=== PATIENT | male | born 1955 | race Caucasian/White ===

== ENCOUNTER 2018-07-30 13:03 | Inpatient (IN) ==
[2018-07-30] MEDS ORDERED: LOVENOX 1 MG/KG SUBQ ONE (13:43)
[2018-07-30] MEDS ORDERED: CARDIZEM IV ONE (13:43)
[2018-07-30] MEDS ORDERED: LOVENOX SUBQ ONE (14:00)
--- NOTE | 2018-07-30 14:13 | Diag Imaging Result Doc PS360 ---
EXAM: CHEST-1 VIEW HISTORY: palpitat TECHNIQUE: Chest single view COMPARISON: 07/09/2013 FINDINGS: The lungs are hyperexpanded. The heart is not enlarged. The vessels are not distended. There are no infiltrates. No effusion identified. Right base granuloma. IMPRESSION: No acute abnormality. Electronically signed by Rey Garcia 07/30/2018 2:10 PM
[2018-07-30 14:27] LABS: BASO# 0.01 X1000 (0.0-0.2); BASO% 0.2 % (0.0-0.8); EOS# 0.03 X1000 (0.0-0.7); EOS% 0.5 % (0.0-10.0); HEMATOCRIT 45.4 % (42.0-52.0); HEMOGLOBIN 15.7 g/dL (14.0-18.0); LYMPH# 3.03 X1000 (1.2-3.4); LYMPH% 46.3 % (20.5-51.1); MCH 34.4 PG (27-31); MCHC 34.6 g/dL (33-37); MCV 99.6 FL (81-99); MONO# 0.48 X1000 (0.11-0.59); MONO% 7.3 % (1.7-9.3); MPV 10.1 FL (7.4-10.4); NEUT# 2.99 X1000 (1.4-6.5); NEUT% 45.7 % (42.2-75.2); PLT 165 X1000 (130-400); RBC 4.56 XMIL (4.7-6.1); RDW 13.6 % (11.5-14.5); WBC 6.54 X1000 (4.8-10.8)
[2018-07-30 14:50] LABS: AGAP 14; ALB/GLOB RATIO 1.3; ALBUMIN 3.9 g/dL (3.5-5.0); ALKALINE PHOSPHATASE 53 U/L (32-122); BUN 14 mg/dL (8-22); CALCIUM 9.2 mg/dL (8.8-10.2); CHLORIDE 100 mmol/L (98-107); CK PROFILE 79 U/L (24-204); COSMO 274; CREATININE 0.8 mg/dL (0.7-1.2); ESTIMATED GFR > 60; GLUCOSE 97 mg/dL (70-104); GOT 15 U/L (10-34); GPT 20 U/L (10-44); MAGNESIUM 1.7 mg/dL (1.5-2.7); POTASSIUM 4.5 mmol/L (3.5-5.1); SODIUM 137 mmol/L (136-145); TCO2 23 mmol/L (25-35); TOTAL BILIRUBIN 0.73 mg/dL (0.20-1.00); TOTAL PROTEIN 6.8 g/dL (6.3-8.3)
--- NOTE | 2018-07-30 14:57 | PROVIDER DOCUMENTATION ---
This chart was entered by Janel Barnes Scribe, acting as scribe for Nathaniel Benton MD. HPI-Cardiac General - General Chief Complaint: Palpitations Stated Complaint: DX W AFIB 2 WEEKS AGO/SYMPTOMS PRESENT NOW Time Seen by Provider: 07/30/18 13:16 Source: patient Allergies/Adverse Reactions: Patient Allergies Allergy/AdvReac Type Severity Reaction Status Date / Time No Known Allergies Allergy Verified 07/30/18 13:32 Home Medications: Home Medication List Medication Instructions Recorded Confirmed Last Taken Type Carvedilol 3.125 mg PO BID 07/09/13 07/30/18 07/30/18 History Alprazolam 1 tab PO TID 07/30/18 07/30/18 07/30/18 History Trazodone HCl 1 tab PO QHS 07/30/18 07/30/18 07/29/18 History - History of Present Illness-Cardiac Nature of Presenting Problem: Patient is a 63 year old male who presents with palpitations. Patient states having chest pain that radiates to left am and shortness of breath with palpitations. Report he was diagnosed with A fib 3 weeks ago. Denies nausea. Location: reports: central Quality of Pain: reports: tightness Severity in ED: mild Onset/Duration: gradual Timing: still present, getting worse Context/Activities at Onset: reports: light activity Palpitation Quality: fast/pounding heart beat History of arrythmia: reports: A-Fib Associated Symptoms: reports: shortness of breath Similar Symptoms Previously?: Yes Recently Seen Here or By Another Healthcare Provider: Yes Review of Systems - Adult - REVIEW OF SYSTEMS - ADULT Constitutional: reports: no symptoms reported. denies: chills, fever, fatique Eyes: reports: no symptoms reported Ears, Nose, Mouth & Throat: reports: no symptoms reported Cardiovascular: reports: see HPI, chest pain, palpitations. denies: heart murmur Respiratory: reports: see HPI, shortness of breath. denies: cough, wheezing Gastrointestinal: reports: no symptoms reported Genitourinary: reports: no symptoms reported Musculoskeletal: reports: no symptoms reported Integumentary: reports: no symptoms reported Neurological: reports: no symptoms reported Psychiatric: reports: no symptoms reported Endocrine: reports: no symptoms reported Hematologic/Lymphatic: reports: no symptoms reported Allergic/Immunologic: reports: no symptoms reported All Other Systems: Reviewed and Negative Past History - Adult - PAST MEDICAL HISTORY-ADULT Review of Records: reports: Old Records Reviewed, Nursing Assessment Review, Medications Reviewed, Social history reviewed & non-contributory. Major Childhood Illnesses: reports: denies history Cardiovascular: reports: A-Fib, HTN Respiratory: reports: denies history Gastrointestinal: reports: denies history Obstetrical/Gynecological: reports: denies history Genitourinary: reports: denies history Musculoskeletal: reports: denies history Neurological: reports: denies history Psychiatric: reports: anxiety Endocrine/Immune: reports: denies history Other Conditions: reports: denies history - PRIOR SURGERIES/PROCEDURES Surgical/Procedure History: reports: reviewed, not pertinent - IMMUNIZATION STATUS Childhood Immunizations: See Nurse Assessment Flu Vaccine: See Nurse Assessment - FAMILY HISTORY Family History: reviewed, not pertinent - SOCIAL HISTORY Smoking: cigarettes, less than 1 pack/day Provider spent 3-5 mins advising pt. on dangers of tobacco.: Discussed manners to quit use, and f/u contacts for add'l counseling. Substance Use: alcohol Alcohol Use Frequency: occasionally Physical Exam-General - PHYSICAL EXAM-ADULT Initial Vital Signs Reviewed: Yes - CONSTITUTIONAL General Appearance: alert, no apparent distress. negative: lethargic, slow to respond - EYES Eyes: PERRL/EOMI. negative: scleral icterus, sunken eyes - HEAD, EARS, NOSE, MOUTH & THROAT HENMT: normocephalic/atraumatic, moist mucous membranes. negative: angioedema, hearing deficit - RESPIRATORY Respiratory: chest non-tender, lungs clear, normal breath sounds. negative: crackles, rhonchi, wheezing - CARDIOVASCULAR Cardiovascular: normal peripheral pulses, tachycardia, irregularly irregular. negative: systolic murmur - GASTROINTESTINAL (ABDOMEN) Abdominal Exam: normal bowel sounds, non tender, soft. negative: guarding, rebound - MUSCULOSKELETAL Extremity: non-tender, normal inspection. negative: deformity, erythema - SKIN Integumentary: normal color, normal turgor, warm/dry. negative: cyanosis, ecchymosis, erythema, jaundice - NEUROLOGIC Neurologic: grossly normal. negative: aphasia, facial droop - PSYCHIATRIC Psych/Mental Status: normal mood/affect, oriented x 3. negative: anxious - HEART Score HEART Score: History: Slightly Suspicious HEART Score: ECG: Non-Specific Repolarization Disturbance/LBBB/PM HEART Score: Age: 45-65 Years HEART Score: Risk Factors for Atherosclerotic Disease: 1 or 2 Risk Factors HEART Score: Troponin: < or = Normal Limit Total HEART Score:: 3 Progress - PLAN OF CARE/RESULTS Progress/Plan/Lab Results: Vital Signs - 8 hr 07/30/18 13:07 07/30/18 13:58 07/30/18 13:59 Temperature 99.2 F Pulse Rate 145 H 83 76 Respiratory Rate 22 23 21 Blood Pressure 136/93 137/85 O2 Sat by Pulse Oximetry 96 93 L 94 L 07/30/18 14:00 07/30/18 14:10 Temperature Pulse Rate 91 H 83 Respiratory Rate 22 20 Blood Pressure O2 Sat by Pulse Oximetry 94 L 97 Laboratory Results - last 24 hr 07/30/18 07/30/18 07/30/18 13:41 13:41 13:41 WBC 6.54 RBC 4.56 L Hgb 15.7 Hct 45.4 MCV 99.6 H MCH 34.4 H MCHC 34.6 RDW Std Deviation 13.6 Plt Count 165 MPV 10.1 Neut % (Auto) 45.7 Lymph % (Auto) 46.3 [place] % (Auto) 7.3 Eos % (Auto) 0.5 Baso % (Auto) 0.2 Neut # (Auto) 2.99 Lymph # (Auto) 3.03 [place] # (Auto) 0.48 Eos # (Auto) 0.03 Baso # (Auto) 0.01 Sodium 137 Potassium 4.5 Chloride 100 Carbon Dioxide 23 L Anion Gap 14 BUN 14 Creatinine 0.8 Estimated GFR/1.73 m2 > 60 BUN/Creatinine Ratio 18 Glucose 97 Calculated Osmolality 274 Calcium 9.2 Magnesium 1.7 Total Bilirubin 0.73 AST 15 ALT 20 Alkaline Phosphatase 53 Creatine Kinase 79 Troponin T < 0.010 Total Protein 6.8 Albumin 3.9 Globulin 2.9 Albumin/Globulin Ratio 1.3 Orders Category Date Time Status Cardiac Monitoring DIRECTED Care 07/30/18 13:56 Active CHEST-1 VIEW [RAD] Stat Exams 07/30/18 13:56 Completed CBC WITH DIFF [HEME] Stat Lab 07/30/18 13:41 Completed CK PROFILE [SP CHEM] Stat Lab 07/30/18 13:41 Completed COMPREHENSIVE METABOLIC PANEL [CHEM] Stat Lab 07/30/18 13:41 Completed MAGNESIUM [CHEM] Stat Lab 07/30/18 13:41 Completed TROPONIN T Stat Lab 07/30/18 13:41 Completed TSH Stat Lab 07/30/18 13:41 Received 0.9% Sodium Chloride Inj [Ns] 100 ml Med 07/30/18 14:15 Active Diltiazem [Cardizem] 125 mg IV As Directed mls/hr Diltiazem [Cardizem] Med 07/30/18 13:43 Discontinued 20 mg IV NOW ONE Enoxaparin 1 mg/kg [Lovenox 1 mg/kg] Med 07/30/18 13:43 Discontinued 1 each SUBQ NOW ONE Enoxaparin [Lovenox] Med 07/30/18 14:00 Discontinued 60 mg SUBQ NOW ONE Result Diagrams: 07/30/18 13:41 07/30/18 13:41 - REASSESSMENT Reassessment #1 Time Reassessed: 14:12 (a fib, rate of 85-100, feels better) Status: improving - EKG 1 Time of EKG reading by physician:: 13:08 EKG Read and Signed by:: Nathaniel Benton EKG Interpretation (*Must complete 3 of following elements*): Abnormal Rate: 155 Rhythm: atrial fibrillation with rapid ventricular response [place]: normal MS Interval: normal Comments: cannot rule out anteroseptal infarct, age undetermined - XRAY 1 XRAY Study: Chest Impression: See EMR Report (EXAM: CHEST-1 VIEW HISTORY: palpitat TECHNIQUE: Chest single view COMPARISON: 07/09/2013 FINDINGS: The lungs are hyperexpa nded. The heart is not enlarged. The vessels are not distended. There are no infiltrates. No effusion identified. Right base granuloma. IMPRESSION: No acute abnormality. Electronically signed by Rey Garcia 07/30/2018 2:10 PM 07/30/18 1410 Interpreting Physician: Rey Garcia MD Dictated Date/Time: 07/30/18 1410 cc: Nathaniel Benton MD; Everardo Rodríguez MD) - CONSULTS/PCP/HOSPITALIST Notification #1 *Consult/PCP/Hospitalist*: Summer, with hospitalist, Dr Florez Time Discussed: 14:52 Departure - Departure Date of Disposition Decision: 07/30/18 Time of Disposition Decision: 13:45 DIAGNOSIS: Atrial fibrillation with RVR Disposition: ADMITTED INPATIENT 09 Certified Medical Emergency: Emergent Condition: Good Referrals and Follow-Ups: Everardo Rodríguez MD [Primary Care Provider] - - Critical Care Note This patient required my direct & personal management of CC.: No Attestation - Physician/ LYDIA Attestation The physician spent face to face time with patient:: Yes Advanced Practice Provider documentation review:: Supervising physician onsite and consulted in the evaluation and care of this patient. The physician did have a face to face encounter with the patient. This chart was documented by the indicated scribe, (Janel Barnes Scribe) and accurately reflects the services I performed and decisions made by me, Nathaniel Benton MD, as attested by the provider's signature.
[2018-07-30] MEDS: CARDIZEM 125 MG in NS 100 ML IV SCH (15:02)
--- NOTE | 2018-07-30 15:15 | EKG Report ---
Test Performed on : 07/30/2018 1:08:56 PM Test Reason : ED. No order in [place] Blood Pressure : / mmHG Vent. Rate : 155 BPM Atrial Rate : 129 BPM P-R Int : 000 ms QRS Dur : 074 ms QT Int : 288 ms P-R-T Axes : 000 069 080 degrees QTc Int : 462 ms Atrial fibrillation. with rapid ventricular response. Cannot rule out Anteroseptal infarct , age undetermined Abnormal ECG When compared with ECG of 27-AUG-2013 15:11, Atrial fibrillation. has replaced Sinus rhythm. Vent. rate has increased BY 74 BPM Minimal criteria for Anteroseptal infarct are now present Unconfirmed Result
[2018-07-30] MEDS ORDERED: TYLENOL PO PRN (16:59)
[2018-07-30] MEDS ORDERED: NICODERM PATCH TD ONE (16:59)
[2018-07-30] MEDS ORDERED: ZOFRAN IV PRN (16:59)
[2018-07-30] MEDS: XANAX PO SCH (18:30)
[2018-07-30] MEDS: DESYREL PO SCH (20:41)
[2018-07-30] MEDS ORDERED: COREG PO SCH (21:00)
[2018-07-31] MEDS ORDERED: LOVENOX SUBQ SCH ×2 (03:00→05:45)
[2018-07-31] MEDS: CARDIZEM 125 MG in NS 100 ML IV SCH (04:28)
[2018-07-31 05:13] LABS: BASO# 0.03 X1000 (0.0-0.2); BASO% 0.5 % (0.0-0.8); EOS# 0.11 X1000 (0.0-0.7); EOS% 1.7 % (0.0-10.0); HEMATOCRIT 42.9 % (42.0-52.0); LYMPH# 2.95 X1000 (1.2-3.4); LYMPH% 46.5 % (20.5-51.1); MCH 34.5 PG (27-31); MCV 98.6 FL (81-99); MONO# 0.63 X1000 (0.11-0.59); MONO% 9.9 % (1.7-9.3); MPV 10.2 FL (7.4-10.4); NEUT# 2.63 X1000 (1.4-6.5); NEUT% 41.4 % (42.2-75.2); PLT 157 X1000 (130-400); RBC 4.35 XMIL (4.7-6.1); RDW 13.8 % (11.5-14.5); WBC 6.35 X1000 (4.8-10.8)
[2018-07-31 05:35] LABS: AGAP 7; BUN 14 mg/dL (8-22); CALCIUM 8.8 mg/dL (8.8-10.2); CHLORIDE 103 mmol/L (98-107); COSMO 277; CREATININE 0.9 mg/dL (0.7-1.2); ESTIMATED GFR > 60; GLUCOSE 81 mg/dL (70-104); POTASSIUM 4.1 mmol/L (3.5-5.1); SODIUM 139 mmol/L (136-145); TCO2 29 mmol/L (25-35)
[2018-07-31] MEDS: XANAX PO SCH ×3 (08:21→16:58)
[2018-07-31] MEDS: BETAPACE PO SCH ×2 (08:22→20:33)
[2018-07-31] MEDS ORDERED: ELIQUIS PO SCH (09:00)
--- NOTE | 2018-07-31 10:20 | HISTORY AND PHYSICAL ---
Addendum to History and Physical dictated by nurse practitioner. I agree with most components of the History and Physical, Assessment and Plan. In brief, Mr. Dueñas is a 63-year-old male with a past history of active tobacco abuse, atrial fibrillation, rapid ventricular rate requiring cardioversion twice and eventually ablation at [facility] in 2014, essential hypertension, anxiety and insomnia who came in with chief complaints of chest pain and shortness of breath since morning. Apparently, the patient had seen his regular physician a couple of weeks ago where he was found to be in atrial fibrillation, however, supposedly his rate was controlled so he was not started on any medication. He was put on aspirin and was advised to see cardiology as an outpatient. In the emergency room, he was found to have heart rate of 140 with irregular irregular rhythm. His troponin was negative. He was given a dose of intravenous diltiazem. He was started on diltiazem drip and enoxaparin subcutaneously therapeutic dose and hospitalist team was consulted for further management. At the time of my evaluation, he denies any more chest pain. He is not feeling short of breath. I did discuss about exam findings, and I answered all of his questions. PHYSICAL EXAMINATION: VITAL SIGNS: Currently, temperature of 99.2, pulse 83. On bedside monitor, it is 92 with irregularly irregular rhythm, blood pressure 130/85 saturating 97% on room air. GENERAL: He does not appear in any acute distress. HEENT: Oral cavity is moist. LUNGS: He has decreased breath sounds bilaterally. No wheezing, rhonchi or crackles. HEART: S1 and S2 normal. No murmur, rub or gallop. He has irregularly irregular heart rhythm. ABDOMEN: Soft and nontender. EXTREMITIES: No lower extremity edema. LABORATORY: Labs are suggestive of normal hemoglobin, normal platelet count. Normal electrolytes. The first troponin has been negative. MICROBIOLOGY: No data. IMAGING: Chest x-ray did not have an acute cardiopulmonary process. EKG had atrial fibrillation with rapid ventricular rate. ASSESSMENT AND PLAN: 1. Atrial fibrillation with rapid ventricular rate. 2. Essential hypertension. 3. Anxiety and insomnia. 4. Active tobacco abuse. PLAN: Continue patient on intravenous diltiazem and therapeutic dose of enoxaparin. Follow up with echocardiogram. I appreciate Cardiology's recommendation about further management including changing his IV medications to p.o. until the echocardiogram is back. I will resume his antihypertensive and anxiety medications which he takes at home. Plan of care discussed with him. All of his questions have been answered. cc: Aristeo Florez MD MTDKami
--- NOTE | 2018-07-31 10:25 | Diag Imaging Result Doc PS360 ---
EXAM: CT THORAX W/O CONTRAST INDICATION: emphysema TECHNIQUE: This exam was performed using automated exposure control, adjustment of mA or kV according to patient size, and/or use of iterative reconstruction technique. COMPARISON: None. FINDINGS: There is overall mild pulmonary emphysema with an apical predominance. However, there is a fairly large left at the medial aspect of the left lung base. There is mild bibasilar subsegmental atelectasis. There are a few calcified granulomata in the right lung. The lungs are essentially clear, otherwise. There is no pleural fluid collection and no pneumothorax. There are calcified mediastinal and right hilar lymph nodes indicating prior granulomatous disease. No significant lymphadenopathy is appreciated, otherwise. There is no cardiomegaly. The bony structures of the thorax are grossly intact. Limited views of the upper abdomen are grossly unremarkable. IMPRESSION: 1.Overall mild pulmonary emphysema. 2.Mild bibasilar subsegmental atelectasis. 3.Other incidental/nonacute findings detailed above. No definite acute pathology by CT. Electronically signed by Lorenzo Concepcion 07/31/2018 10:22 AM
--- NOTE | 2018-07-31 10:38 | HISTORY AND PHYSICAL ---
PRIMARY CARE PHYSICIAN: Everardo Rodríguez MD CHIEF COMPLAINT: Chest pain and shortness of breath. HISTORY OF PRESENT ILLNESS: Mr. Dueñas is a 63-year-old male who presents to the ER today complaining of chest pain and shortness of breath. He states that 2 weeks ago he went to see his Primary Care Physician Dr. Rodríguez. Dr. Rodríguez stated that he was back in atrial fibrillation, but it was a controlled rate. Mr. Dueñas has a history of atrial fibrillation where he was treated 4-5 years ago at [facility] with an ablation. Dr. Rodríguez scheduled him an appointment to see Dr. Mata for this past . Mr. Dueñas had to change that appointment with Dr. Mata and was not to see Dr. Mata until 08/12. Mr. Dueñas did not have any symptoms with this atrial fibrillation. He denied any shortness of breath or chest pain at that time. He does state that however this morning he woke up and did start having some chest pain and some shortness of breath, and decided to come to the ER. When he presented to the ER, he was noted to be in atrial fibrillation with a rate of 155. The patient was given Cardizem 20 mg IV push. The patient was then started on a Cardizem drip. The patient denies any chest pain or shortness of breath at this time. The patient is lying on the ER stretcher at this time in no acute distress. Heart rate at this time is in the 80's in atrial fibrillation. Blood pressure is stable at this time. There are no other symptoms noted at this time. The patient states that he did not have any diaphoresis with his chest pain. No headache. No nausea or vomiting with his chest pain. PAST MEDICAL HISTORY: Hypertension, atrial fibrillation/flutter with cardioversion times 2, and a subsequent ablation at [facility] 4-5 years ago. Anxiety. insomnia. PAST SURGICAL HISTORY: Ablation 4 to 5 years ago at [facility]. Right foot surgery from a fracture. FAMILY HISTORY: Dad from prostate cancer. Mom from dementia and heart related problems. Brother from heart problems. SOCIAL HISTORY: The patient lives here in [place]. He smokes 1-1/2 packs of cigarettes a day. Drinks 3 beers on Sunday and 3 beers on Sunday night. Denies any illicit drug abuse. MEDICATIONS: 1. Xanax 0.5 mg p.o. t.i.d. 2. Trazodone 50 mg p.o. at bedtime. 3. Carvedilol 3.125 mg p.o. b.i.d. 4. Aspirin 81 mg p.o. in the morning. ALLERGIES: No known drug allergies. LABORATORY AND DIAGNOSTIC: White blood cell count 6.54, hemoglobin 15.7, hematocrit 45.5, and platelet count 165,000. Sodium 137, potassium 4.5, carbon dioxide 23, BUN 14, creatinine 0.8. GFR is greater than 60. Glucose is 97. Calcium 9.2. Magnesium 1.7. AST 15 and ALT 20. Alkaline phosphatase is 53. Creatinine kinase is 79. Troponin is less than 0.01. TSH is 0.94. Chest x-ray shows no acute abnormality. EKG in the ER shows a rate of 155. Atrial fibrillation with rapid AVR. REVIEW OF SYSTEMS: A 12 point Review of Systems was obtained and all is negative except for as stated above in HPI. PHYSICAL EXAMINATION: VITAL SIGNS: Temperature 99.2, heart rate 83, respiratory rate 20, blood pressure 137/85, 02 sats 97% on room air. GENERAL: This is a well-nourished, well-developed, 63-year-old male in no acute distress. HEENT: Normocephalic and atraumatic. Pupils are equal, round and reactive to light. Mucous membranes are dry. No dentition noted. NECK: Supple. No lymphadenopathy. Trachea is midline. No JVD. CV: No murmur, gallop or rub. The patient has atrial fibrillation on the monitor. Rate of 83. RESPIRATORY: Lung sounds are clear. Equal chest excursion. Respirations are nonlabored. No accessory muscle usage. GI: Abdomen is soft, nontender and nondistended. Bowel sounds are present times 4. NEUROLOGIC: The patient is awake, alert and oriented. Follows all commands. Cranial nerves are intact. MUSCULOSKELETAL: Full distal strength noted. No abnormalities or deformities. EXTREMITIES: No cyanosis, clubbing or edema. DP and PT pulses are present and intact. SKIN: Warm, dry and intact. No rashes or bruises noted. ASSESSMENT: 1. Atrial fibrillation. 2. Hypertension. 3. Anxiety. 4. Tobacco dependence. 5. Insomnia. PLAN: We will admit this patient place him on the CIC Unit and continue him on Cardizem drip. We will do echocardiogram in the morning. We will do serial CK's and troponin's, and EKG's. Restart home medications. Repeat labs in the morning. Consult Cardiology. Dictated by JOSE CRUZ Le for Aristeo Florez MD cc: MD Aristeo Gee MD I agree with most components of history, physical, assessment and plan. A separate addendum has been dictated. ANGELICA
[2018-07-31] MEDS ORDERED: NICODERM PATCH TD PRN (14:17)
--- NOTE | 2018-07-31 14:30 | PROGRESS NOTE ---
DATE: 07/31/2018 INTERVAL HISTORY: His heart rate was in acceptable range on diltiazem drip. He is still in atrial fibrillation. We discussed about exam findings. Cardiology recommendation was starting sotalol. I answered all of his questions. SUBJECTIVE: He is denying any chest pain, shortness of breath, any more palpitation. No nausea or vomiting. VITALS: Temperature 98 degrees, pulse 66, respiratory rate 16, blood pressure 110/77, saturating 95% room air. PHYSICAL EXAMINATION: General: Does not appear in any acute distress. Oral cavity is moist. Lungs: Air entry bilaterally equal. No wheeze, rhonchi, or crackles. Cardiovascular: S1, S2 normal. No murmur, rub, or gallop. Appears irregularly irregular. Abdomen: Soft, nontender. Extremities: No lower extremity edema. LABS: Suggestive of normal hemoglobin, hematocrit, and platelet count. Normal electrolytes. His troponins were negative x3. ASSESSMENT AND PLAN: 1. Atrial fibrillation with rapid ventricular rate. Continue intravenous diltiazem and start sotalol as per Cardiology recommendation. He is on apixaban and the plan is to take him for cardioversion tomorrow if he does not cardiovert on sotalol. 2. History of anxiety and insomnia. Continue home alprazolam and trazodone. 3. Active tobacco abuse. CT scan thorax has been ordered by cardiology. Follow up results. DISPOSITION: The patient remains inside the hospital as we await his chemical or electrical cardioversion. Plan of care discussed with him. All of his questions been answered. cc: Aristeo Florez MD
[2018-07-31] MEDS: ELIQUIS PO SCH ×3 (16:58→20:33)
[2018-07-31] MEDS: DESYREL PO SCH (20:33)
--- NOTE | 2018-07-31 22:49 | ECHO REPORT ---
ORDER DATE: 07/30/2018 MEASUREMENTS: Septal thickness 1.0, left ventricular internal diameter in diastole 5.0, left ventricular posterior wall thickness 0.9. Left ventricular internal diameter in systole 3.6, aortic root 3.5, left atrium 3.3. SUMMARY: 1. Adequate quality study. 2. The aortic valve is trileaflet and opens normally on 2-dimensional images. Peak gradient across the aortic valve is less than 5 mmHg. Mitral, tricuspid and pulmonic valves are without evidence of structural abnormality, with mild to moderate mitral regurgitation and trace tricuspid regurgitation. The estimated systolic PA pressure by Doppler is 30 mmHg. The aortic root is normal size. 3. Normal left ventricular dimensions demonstrated. Estimated left ventricular ejection fraction appears to be approximately 50% to 55%. No regional wall motion abnormalities are evident. Left atrium, right atrium and right ventricle are normal in size, with normal right ventricular systolic function. 4. No pericardial effusion. 5. Appearance of inferior vena cava suggests normal central venous pressure. cc: MD Fabiola Jimenez CRNP
[2018-08-01 05:50] LABS: INR 1.13; PROTIME 15.4 Seconds (11.0-16.0)
[2018-08-01 05:51] LABS: PTT 27.5 Seconds (22.3-41.8)
[2018-08-01] MEDS: ELIQUIS PO SCH ×2 (08:34→20:47)
[2018-08-01] MEDS: BETAPACE PO SCH ×2 (08:34→20:47)
[2018-08-01] MEDS: XANAX PO SCH ×3 (10:55→17:00)
--- NOTE | 2018-08-01 11:05 | EKG Report ---
Test Performed on : 08/01/2018 10:44:10 AM Test Reason : afib Blood Pressure : / mmHG Vent. Rate : 074 BPM Atrial Rate : 087 BPM P-R Int : 000 ms QRS Dur : 090 ms QT Int : 398 ms P-R-T Axes : 000 010 066 degrees QTc Int : 441 ms Atrial fibrillation. Abnormal ECG When compared with ECG of 30-JUL-2018 13:08, (Unconfirmed) Vent. rate has decreased BY 81 BPM Minimal criteria for Anteroseptal infarct are no longer present Confirmed by Agnieszka CRANDALL, Wenceslao Alexander ([id number]) on 08/01/2018 1:42:22 PM
[2018-08-01] MEDS ORDERED: DIPRIVAN 1% ONE (11:21)
--- NOTE | 2018-08-01 12:36 | PROGRESS NOTE ---
DATE: 08/01/2018 SUBJECTIVE: I saw Mr. Dueñas this morning in his hospital bed. He refers to be doing okay. No new complaints. No shortness of breath and no chest pain. He is awaiting for AUGIE with cardioversion. OBJECTIVE: Blood pressure 121/86, pulse of 83, respirations 17, and temperature is 98.5 degrees. The patient is saturating 95% on room air. General: Mr. Dueñas is a 63-year-old gentleman. He is in bed in no distress. HEENT: Mucosa is pink and moist. He looks mildly undernourished. Chest: Air entry is bilaterally reduced. There is some expiratory distant wheezing, but no crackles. Cardiovascular: Irregularly irregular rate controlled. No murmurs. Abdomen: Soft and nontender. Bowel sounds present. Extremities: No pedal edema. ARTS EDUCATION TEACHER: Patient is awake, alert, and oriented. There are no focal neurological deficit. LABORATORY DATA: None for today. CURRENT MEDICATIONS: All have been reviewed. The patient continues to be on Cardizem drip, Betapace, and Eliquis. IMAGING STUDIES: The patient's previous imaging studies have all been reviewed. A CT scan of the chest shows an overall mild pulmonary emphysema, and mild bibasilar segmental atelectasis. Echocardiogram shows an ejection fraction of about 50 to 55 percent. ASSESSMENT: 1. Atrial fibrillation with RVR on presentation. The patient is pending AUGIE with cardioversion today. 2. History of anxiety and insomnia. 3. Tobacco abuse. 4. COPD/emphysema. The patient is currently not in acute exacerbation. We will use p.r.n. nebulization for the mild bronchospasms. cc: Michael Velasquez MD
--- NOTE | 2018-08-01 14:53 | EKG Report ---
Test Performed on : 08/01/2018 2:45:05 PM Test Reason : TEEW/CARDIOVERSION Blood Pressure : / mmHG Vent. Rate : 069 BPM Atrial Rate : 069 BPM P-R Int : 156 ms QRS Dur : 090 ms QT Int : 418 ms P-R-T Axes : 078 008 068 degrees QTc Int : 447 ms Normal sinus rhythm. Possible Left atrial enlargement Borderline ECG When compared with ECG of 01-AUG-2018 10:44, Sinus rhythm. has replaced Atrial fibrillation. Confirmed by Agnieszka CRANDALL, Wenceslao Alexander ([id number]) on 08/05/2018 5:04:55 PM
--- NOTE | 2018-08-01 19:01 | CARDIAC CATH REPORT ---
PROCEDURE NAME: - PROCEDURE: Cardioversion. INDICATION: Atrial fibrillation. PROCEDURE IN DETAIL: Mr. Dueñas was brought to the catheterization laboratory in fasting state. Prepped in usual fashion. After AUGIE was performed and confirmed no clot, he was ensured to be adequately sedated. One shock was delivered in synchronized fashion at 150 joules with conversion to sinus rhythm. The patient tolerated the procedure well without any complications. cc: Abimael Mata MD
[2018-08-01] MEDS: DESYREL PO SCH (20:47)
--- NOTE | 2018-08-01 21:29 | Transesophageal Echocardiogram ---
DATE: 08/01/2018 INDICATION FOR THE PROCEDURE: Atrial fibrillation. PROCEDURE IN DETAIL: Mr. Dueñas was brought to the catheterization laboratory in fasting state. Informed consent was obtained. Prepped in usual fashion. He was anesthetized with HurriCaine spray, as well as propofol. After adequate sedation, AUGIE probe was passed without difficulty. Images were obtained in multiple planes. At conclusion of procedure, the probe was removed. No apparent complications. FINDINGS: 1. The right atrium appears mildly enlarged. There is no clear evidence of shunting across the interatrial septum or [id number] shunting visualized via injection of agitated saline contrast. Color Doppler does show a suggestion of a very mild shunt suggestive of an extremely small PFO. 2. Trace tricuspid regurgitation. 3. Right ventricle does appear to have somewhat mild reduction in RV systolic function. 4. No significant pulmonic insufficiency on poor views of the pulmonic valve. 5. Left atrium appears mildly enlarged. The pulse wave velocity in the left atrial appendage is less than 40 cm/sec indicating a low-flow state. There is no clear evidence of organized clot. 6. No mitral prolapse. Mild mitral regurgitation. 7. Normal LV size. The left ventricular systolic function was difficult to estimate due to irregularity. It appears mildly reduced on the order of 45%. 8. The aortic valve appears to open well. It is trileaflet. No evidence of stenosis or insufficiency. 9. There is mild atherosclerosis identified in the descending thoracic aorta. 10. There is no pericardial effusion identified. cc: MD Everton Grullon MD
[2018-08-02] MEDS: BETAPACE PO SCH (08:17)
[2018-08-02] MEDS: XANAX PO SCH (08:17)
[2018-08-02] MEDS: ELIQUIS PO SCH (08:17)
[2018-08-02 11:43] VITALS: BP 125/80
--- NOTE | 2018-08-02 14:09 | CARDIOLOGY CONSULTATION ---
DATE: 07/31/2018 CONSULTATION REQUESTED BY: Hospitalist service. PRIMARY CARE PHYSICIAN: Dr. Rodríguez. EXTRACTIONS TECHNOLOGIST: Dr. Abimael Mata. REASON FOR CONSULTATION: Persistent atrial fibrillation. HISTORY: The patient is 63 years of age. He presented to Dr. Rodríguez about 3 weeks ago for a regular checkup. At that time, he stated that for few days or weeks, he had noted slightly decreased stamina and some easy fatigability. At that time, Dr. Rodríguez listened to his heart and told him that he was having an irregular pulse or irregular heartbeat. The patient was aware of having atrial fibrillation in the past and then they made an appointment to see Dr. Mata. However, the appointment was somewhat late in the month and he did make it. Yesterday, he presented to the ER because for the past few days, he has been feeling definitely more short of breath and he has felt his heart racing. Upon presentation to the ER, he was noted to be in atrial fibrillation with rapid response. The first EKG shows atrial fibrillation with a heart rate of 155 beats per minute. He was placed on IV Cardizem and overnight he has felt better. Today, his pulse is more controlled. He denies having chest pain. He denies having swelling. Denies having syncope. PAST MEDICAL HISTORY: Positive for paroxysmal atrial fibrillation. Back in 2013, he presented to this hospital and at that time they found him in atrial fibrillation. They did cardioversion in August 2013. Subsequently he was referred to Dr. Webb in [place], who performed ablation of atrial fibrillation. Since then, the patient has really needed any more specific treatment for atrial fibrillation. He has felt fine. Past history is also positive for hypertension and some anxiety. PAST SURGICAL HISTORY: He had a broken foot on the right side requiring surgery. He has had some oral surgery in the past. SOCIAL HISTORY: He lives by himself with his son. His is sick after a severe stroke that left her paralyzed. She is staying at a half-way. The patient smokes half a pack of cigarettes a day for the past 40 years. He works doing [employer] for the past 43 years. 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 Not a drinker. FAMILY HISTORY: Mother had myocardial infarction; however, she did not from it. Family had heart attacks. ALLERGIES: His allergies are negative. HOME MEDICATIONS: 1. Alprazolam 1 tablet 3 times a day. 2. Carvedilol 3.125 twice a day. 3. Trazodone 1 tablet at bedtime. REVIEW OF SYSTEMS: Really noncontributory. Aside from what I have reported, the multiple systems review is negative. PHYSICAL EXAMINATION: Vital signs: Blood pressure 111/77, temperature 98.8 degrees, pulse 63, respirations 16. General: He is awake, alert, oriented, in no distress. HEENT: Unremarkable. Chest: Clear to auscultation and percussion. Heart: Sounds are irregularly irregular. Abdomen: Soft, nontender. Extremities: Show good pulses. No peripheral edema. Neurological: Nonfocal. Moves 4 extremities. BLOOD WORK: Sodium is 139, potassium 4.1, BUN 14, creatinine 0.9. His hemoglobin 15 g. Troponins have been checked 3 times, are negative. IMPRESSION: 1. Patient presenting with paroxysmal atrial fibrillation with rapid response. 2. History of hypertension. 3. Tobacco user. 4. Family history of myocardial infarction. RECOMMENDATIONS: 1. At this time, I would suggest to obtain a lipid panel. We will consider doing a CT scan of the chest because he does have a clear indication of emphysema on physical exam. I may want to know how bad this situation is prior to long-term therapy with beta blockers. He might require repeated ablation. 2. He has been counseled against smoking cigarettes. 3. We will also order an echocardiogram and if the CT of the chest shows coronary calcification, I may want to obtain a myocardial perfusion stress test. 4. We will initiate Sotalol 80 mg BID + Eliquis 5 mg BID. If he does not convert to sinus rhythm overnight, we will arrange for a transesophageal echo and a direct current cardioversion. Thank you again for the opportunity to participate in his evaluation. cc: Everton Calabrese MD [facility]
--- NOTE | 2018-08-02 14:39 | CARDIOLOGY PROGRESS NOTE ---
DATE: 08/01/2018 CHIEF COMPLAINT: Shortness of breath, irregular heartbeat. SUBJECTIVE: Mr. Dueñas feels fine this morning. He is still in atrial fibrillation. Rate is controlled. Yesterday, we did a CT of the chest that shows overall mild pulmonary emphysema with mild bibasilar subsegmental atelectasis. OBJECTIVE: Vital signs: Blood pressure 109/78, temperature 98 degrees, pulse 79, respirations 25. He is awake, alert, no distress. HEENT: Unremarkable. Chest: Shows markedly diminished breath sounds bilaterally. Heart: Sounds are irregularly irregular without gallop or murmur. Abdomen: Nontender, soft. No masses. No hepatomegaly. Extremities: Show good pulses. No peripheral edema. Neurological: Follows commands. Moves all 4 extremities. DATA: Echocardiogram done on the shows ejection fraction 50 to 55 percent. There is no significant valvular abnormality. Blood work: PT, INR are normal. IMPRESSION: 1. Patient who has persistent atrial fibrillation. 2. Emphysema. 3. Tobacco user. RECOMMENDATION: At this time, we will we will arrange for a transesophageal echocardiogram to be followed by a direct current cardioversion. The benefits, risks, complications have been explained to the patient in detail. He understood and requested to proceed. Further intervention will depend on his response to that intervention. cc: Everton Calabrese MD
--- NOTE | 2018-08-03 05:57 | DISCHARGE SUMMARY ---
ADMISSION DATE: 07/30/2018 DISCHARGE DATE: 08/02/2018 DISPOSITION: Home. FOLLOW-UP: 1. Dr. Rodríguez 2. Dr. Calabrese. CONSULTATION DURING ADMISSION: Cardiology was consulted. Patient was seen by Dr. Abimael Mata. INVASIVE PROCEDURES DONE DURING THIS ADMISSION: A AUGIE with cardioversion was done by Dr. Abimael Mata. IMAGING STUDIES OF SIGNIFICANCE: 1. Chest x-ray was done initially which shows no acute disease. 2. Echocardiogram showed an ejection fraction of [address] scan of the chest showed mild pulmonary emphysema and mild bibasilar segmental atelectasis. ADMISSION DIAGNOSES: 1. Atrial fibrillation. 2. Hypertension. 3. Anxiety. 4. Tobacco dependence. 5. Insomnia. DIAGNOSES AT TIME OF DISCHARGE: 1. Paroxysmal atrial fibrillation with rapid ventricular rate on presentation. Patient is status post AUGIE with cardioversion, and he has been maintaining sinus on sotalol. 2. History of anxiety and insomnia. 3. Tobacco use and abuse. Patient has been counseled. 4. History of chronic obstructive pulmonary disease/emphysema, not in acute exacerbation. Patient is advised to follow up with Pulmonary Medicine and primary care. DISCHARGE MEDICATIONS: 1. Carvedilol 3.125 b.i.d. 2. Alprazolam 0.5 three times per day. 3. Trazodone 150 p.o. at bedtime. 4. Sotalol 80 mg b.i.d. PRESENTING COMPLAINT: Chest pain and shortness of breath. HISTORY OF PRESENTING COMPLAINT: Mr. Dueñas is a 63-year-old gentleman who is known to have atrial fibrillation with cardioversion twice in the past, also had ablation about 45 years ago and hypertension came to the emergency department because of shortness of breath and chest discomfort. He was found to be in atrial fibrillation RVR with a rate of 155. Cardizem was pushed, and a drip was set on him, and he was admitted for further medical care. HOSPITAL COURSE: Mr. Dueñas was admitted to the [facility] on telemetry monitoring. He continued to be on the drip. Cardiology was consulted. Patient was seen by Dr. Calabrese. The decision was made for a AUGIE and cardioversion which was successfully done by Dr. Mata. The patient remained in sinus rhythm overnight. This morning he refers to feel a whole lot better. Denies any complaints. No chest pain. No shortness of breath. We think Mr. Dueñas is stable for discharge. His current vitals show blood pressure is 133/93, pulse of 70, respirations 16, and temperature 97.6 degrees. The patient is clinically stable and the rest of physical exam is unremarkable. TIME SPENT: The time spent for discharge is 37 minutes. cc: MD Dr. Marcos Phelps MD
== END 2018-08-02 12:17 | disposition home or self-care (01) | DRG 310 ==
LOC: ED 13:03 → 3S 15:58 → SUATTDRO 15:58 → 3S 07-31 00:10
PROVIDERS: ATTEND Internal Medicine
CPT/HCPCS: 71010; 71045; 71250; 80048; 80053; 82550; 83735; 84443; 84484; 85025; 85610; 85730; 92960; 93005; 93010; 93306; 93312; A9270; J1650

== ENCOUNTER 2018-08-21 15:05 | Inpatient (IN) ==
--- NOTE | 2018-08-21 16:30 | PROVIDER DOCUMENTATION ---
HPI-Cardiac General - General Chief Complaint: Dizziness Stated Complaint: HEART MONITOR SAYS "AFIB" Time Seen by Provider: 08/21/18 16:20 Source: patient Allergies/Adverse Reactions: Patient Allergies Allergy/AdvReac Type Severity Reaction Status Date / Time No Known Allergies Allergy Verified 07/30/18 13:32 Home Medications: Home Medication List Medication Instructions Recorded Confirmed Last Taken Type Carvedilol 3.125 mg PO BID 07/09/13 07/30/18 07/30/18 History Alprazolam 1 tab PO TID 07/30/18 07/30/18 07/30/18 History Trazodone HCl 1 tab PO QHS 07/30/18 07/30/18 07/29/18 History Apixaban [Eliquis] 5 mg PO BID #120 tab 08/02/18 Unknown Rx Sotalol [Betapace] 80 mg PO BID #120 tab 08/02/18 Unknown Rx - History of Present Illness-Cardiac Nature of Presenting Problem: 63 YOM PRESENTS WITH C/O BEING IN A-FIB REPORTS HE WAS ADMITED RECENTLY AND DIAGNOSED WITH A FIB HE IS ON ELIQUIS,SATALOL, COREG FOR THIS. HE HAS APPT WITH [facility] SCHEDULED FOR THE 22. HE REPORTS HE BECOMES SOB IN THESE EPISODES. HE DENIES THIS CURRENTLY. HE DENIES CP, FEVER, CHILLS, N/V/D. Onset/Duration: 1 week ago Timing: gone now, intermittent Context/Activities at Onset: reports: none Modifying Factors: improves with: nothing Palpitation Quality: N/A History of arrythmia: reports: A-Fib Recent use of:: reports: caffeine Nitro Today/Relief: reports: no nitro taken today Aspirin Treatment Today: reports: no aspirin today (ON ELIQUIS) Associated Symptoms: reports: shortness of breath Similar Symptoms Previously?: No Recently Seen Here or By Another Healthcare Provider: No Review of Systems - Adult - REVIEW OF SYSTEMS - ADULT Constitutional: reports: no symptoms reported. denies: see HPI, chills, fever, fatique, night sweats, weight gain, weight loss, other Eyes: reports: no symptoms reported. denies: see HPI, discharge, dry eyes, decreased vision, blurred vision, double vision, eye pain, redness, other Ears, Nose, Mouth & Throat: reports: no symptoms reported. denies: see HPI, ear discharge, ear pain, hearing loss, tinnitus, epistaxis, sinus problem, nose pain, loose teeth, mouth/dental pain, mouth swelling, hoarseness, throat pain, throat swelling, other Cardiovascular: reports: no symptoms reported. denies: see HPI, chest pain, edema, heart murmur, irregular heart rate, orthopnea, palpitations, poor circulation, PND, syncope, other Respiratory: reports: shortness of breath (WHEN EPISODES OF A -FIB OCCUR). denies: no symptoms reported, see HPI, chronic cough, cough, dyspnea on exertion, excessive sputum production, hemoptysis, pleurisy, wheezing, other Gastrointestinal: reports: no symptoms reported. denies: see HPI, abdominal pain, hematemesis, constipation, diarrhea, difficulty swallowing, frequent heartburn, nausea, poor appetite, rectal bleeding, vomiting, other Genitourinary: reports: no symptoms reported. denies: see HPI, dysuria, discharge, frequency, flank pain, frequent UTI's, hematuria, hesitency, incontinence, urinary retention, urgency, other Musculoskeletal: reports: no symptoms reported. denies: see HPI, bone pain, back pain, frequent leg cramps, joint pain, joint swelling, muscle aches, muscle weakness, neck pain, other Integumentary: reports: no symptoms reported. denies: see HPI, hives, hair loss, itching, mole changes, nail changes, rash, skin sores/ulcer, skin thickening, other Neurological: reports: no symptoms reported. denies: see HPI, ataxia, dizziness/vertigo, headache/migraines, loss of balance, numbness, paresthesia, seizure, slurred speech, syncope, tremors, other Psychiatric: reports: no symptoms reported. denies: see HPI, anxiety, anti- depressant use, alcohol/drug dependence, depression, emotional problems, insomnia, panic attacks, suicidal thoughts, other Endocrine: reports: no symptoms reported. denies: see HPI, change in skin pigment, excessive sweating, goiter, cold intolerance, heat intolerance, increased hunger, increased thirst, polyuria, other Hematologic/Lymphatic: reports: no symptoms reported. denies: see HPI, blood clots, easy bruising, low blood count, lymphedema, prolonged bleeding, swollen lymph nodes, transfusions, other Allergic/Immunologic: reports: no symptoms reported. denies: see HPI, allergic reactions, allergic rhinitis, asthma, eczema, food allergy, frequent infections, hay fever, hives, positive PPD, urticaria, other Past History - Adult - PAST MEDICAL HISTORY-ADULT Review of Records: reports: Old Records Reviewed, Nursing Assessment Review, Social history reviewed & non-contributory. Physical Exam-General - PHYSICAL EXAM-ADULT Initial Vital Signs Reviewed: Yes - CONSTITUTIONAL General Appearance: appears well, alert, no apparent distress - EYES Eyes: PERRL/EOMI - HEAD, EARS, NOSE, MOUTH & THROAT HENMT: normocephalic/atraumatic, moist mucous membranes, normal ENT inspection - NECK Neck: non-tender, full range of motion, supple - RESPIRATORY Respiratory: chest non-tender, lungs clear, normal breath sounds, no pleuratic chest pain, no respiratory distress - CARDIOVASCULAR Cardiovascular: normal peripheral pulses, no edema, no gallop, no JVD, no murmur , irregularly irregular - GASTROINTESTINAL (ABDOMEN) Abdominal Exam: normal bowel sounds, non tender, soft - LYMPHATIC Lymphatic: no adenopathy - MUSCULOSKELETAL Back Exam: normal inspection Extremity: normal range of motion, non-tender, normal gait - SKIN Integumentary: normal color, normal turgor, warm/dry - NEUROLOGIC Neurologic: grossly normal - PSYCHIATRIC Psych/Mental Status: normal mood/affect, oriented x 3 - HEART Score HEART Score: History: Slightly Suspicious HEART Score: ECG: Normal HEART Score: Age: 45-65 Years HEART Score: Risk Factors for Atherosclerotic Disease: 1 or 2 Risk Factors HEART Score: Troponin: < or = Normal Limit Total HEART Score:: 2 Progress - PLAN OF CARE/RESULTS Progress/Plan/Lab Results: Vital Signs - 8 hr 08/21/18 15:33 08/21/18 16:22 Temperature 98.2 F Pulse Rate 85 85 Respiratory Rate 18 24 Blood Pressure 113/81 94/88 O2 Sat by Pulse Oximetry 97 99 Laboratory Results - last 24 hr 08/21/18 08/21/18 08/21/18 16:24 16:24 16:24 WBC 7.91 RBC 4.60 L Hgb 15.8 Hct 44.6 MCV 97.0 MCH 34.3 H MCHC 35.4 RDW Std Deviation 12.9 Plt Count 154 MPV 9.9 Immature Gran % (Auto) 0.0 Neut % (Auto) 35.3 L Lymph % (Auto) 53.4 H [place] % (Auto) 9.4 H Eos % (Auto) 1.5 Baso % (Auto) 0.4 Immature Gran # (Auto) 0.00 Neut # (Auto) 2.80 Lymph # (Auto) 4.22 H [place] # (Auto) 0.74 H Eos # (Auto) 0.12 Baso # (Auto) 0.03 PT 16.2 H INR 1.20 PTT (Actin FS) 28.3 Sodium 137 Potassium 4.8 Chloride 100 Carbon Dioxide 25 Anion Gap 12 BUN 24 H Creatinine 1.1 Estimated GFR/1.73 m2 > 60 BUN/Creatinine Ratio 22 Glucose 70 POC Glucose Calculated Osmolality 276 Calcium 8.9 Total Bilirubin 0.87 AST 16 ALT 15 Alkaline Phosphatase 46 Troponin T Total Protein 6.5 Albumin 4.0 Globulin 2.5 Albumin/Globulin Ratio 1.6 08/21/18 08/21/18 16:24 16:34 WBC RBC Hgb Hct MCV MCH MCHC RDW Std Deviation Plt Count MPV Immature Gran % (Auto) Neut % (Auto) Lymph % (Auto) [place] % (Auto) Eos % (Auto) Baso % (Auto) Immature Gran # (Auto) Neut # (Auto) Lymph # (Auto) [place] # (Auto) Eos # (Auto) Baso # (Auto) PT INR PTT (Actin FS) Sodium Potassium Chloride Carbon Dioxide Anion Gap BUN Creatinine Estimated GFR/1.73 m2 BUN/Creatinine Ratio Glucose POC Glucose 71 Calculated Osmolality Calcium Total Bilirubin AST ALT Alkaline Phosphatase Troponin T < 0.010 Total Protein Albumin Globulin Albumin/Globulin Ratio Orders Category Date Time Status cxr [CHEST-2 VIEWS] [RAD] Stat Exams 08/21/18 16:23 Completed CBC WITH ELECTRONIC DIFF [HEME] Stat Lab 08/21/18 16:24 Completed COMPREHENSIVE METABOLIC PANEL [CHEM] Stat Lab 08/21/18 16:24 Completed PROTIME WITH INR [COAG] Stat Lab 08/21/18 16:24 Completed PTT [COAG] Stat Lab 08/21/18 16:24 Completed TROPONIN T Stat Lab 08/21/18 16:24 Completed EKG [EKG] Stat Ther 08/21/18 16:11 Ordered Result Diagrams: 08/21/18 16:24 08/21/18 16:24 - EKG 1 Time of EKG reading by physician:: 15:42 EKG Read and Signed by:: Rory Huddleston EKG Interpretation (*Must complete 3 of following elements*): Normal Rate: 100 Rhythm: A-FIB [place]: normal QRS: normal [place] Interval: normal ST Wave: normal Prior EKG Comparison: unchanged from prior - CONSULTS/PCP/HOSPITALIST Notification #1 *Consult/PCP/Hospitalist*: EREN HOSPITALIST Time Discussed: 17:58 Consult Disposition: Admit Departure - Departure Date of Disposition Decision: 08/21/18 Time of Disposition Decision: 17:58 DIAGNOSIS: A-fib Disposition: ADMITTED INPATIENT 09 Certified Medical Emergency: Emergent Condition: Stable Referrals and Follow-Ups: Everardo Rodríguez MD [Primary Care Provider] - - Critical Care Note This patient required my direct & personal management of CC.: No Attestation - Physician/ LYDIA Attestation Patient care was provided by Advanced Practice Provider:: Yes Advanced Practice Provider:: Olga Torrez Advanced Practice Provider documentation review:: The Mid-level provider documentation, treatment plan and medical decision making was reviewed by the physician who agrees with all treatment and medical decision making by the MLP. The physician spent face to face time with patient:: No Advanced Practice Provider documentation review:: Supervising physician onsite and consulted in the evaluation and care of this patient. The physician did not have a face to face encounter with the patient.
[2018-08-21 16:54] LABS: BASO# 0.03 X1000 (0.0-0.2); BASO% 0.4 % (0.0-0.8); EOS# 0.12 X1000 (0.0-0.7); EOS% 1.5 % (0.0-10.0); HEMATOCRIT 44.6 % (42.0-52.0); HEMOGLOBIN 15.8 g/dL (14.0-18.0); LYMPH# 4.22 X1000 (1.2-3.4); LYMPH% 53.4 % (20.5-51.1); MCH 34.3 PG (27-31); MCHC 35.4 g/dL (33-37); MONO# 0.74 X1000 (0.11-0.59); MONO% 9.4 % (1.7-9.3); MPV 9.9 FL (7.4-10.4); NEUT% 35.3 % (42.2-75.2); PLT 154 X1000 (130-400); RDW 12.9 % (11.5-14.5); WBC 7.91 X1000 (4.8-10.8)
[2018-08-21 17:00] LABS: INR 1.2; PROTIME 16.2 Seconds (11.0-16.0); PTT 28.3 Seconds (22.3-41.8)
[2018-08-21 17:13] LABS: AGAP 12; ALB/GLOB RATIO 1.6; ALKALINE PHOSPHATASE 46 U/L (32-122); BUN 24 mg/dL (8-22); CALCIUM 8.9 mg/dL (8.8-10.2); CHLORIDE 100 mmol/L (98-107); COSMO 276; CREATININE 1.1 mg/dL (0.7-1.2); ESTIMATED GFR > 60; GLUCOSE 70 mg/dL (70-104); GOT 16 U/L (10-34); GPT 15 U/L (10-44); POTASSIUM 4.8 mmol/L (3.5-5.1); SODIUM 137 mmol/L (136-145); TCO2 25 mmol/L (25-35); TOTAL BILIRUBIN 0.87 mg/dL (0.20-1.00); TOTAL PROTEIN 6.5 g/dL (6.3-8.3)
--- NOTE | 2018-08-21 17:19 | Diag Imaging Result Doc PS360 ---
EXAM: CHEST-2 VIEWS 08/21/2018 HISTORY: AFIB, PALPITATIONS TECHNIQUE: PA and lateral chest COMMENT: There is a calcified granuloma in the right lower lobe. There is no evidence of acute cardiac or pulmonary disease. There may be COPD. Compared to 07/30/2018 there has been no significant change. IMPRESSION: COPD. Electronically signed by Ángel Nevarez 08/21/2018 5:17 PM
[2018-08-21] MEDS ORDERED: TYLENOL PO PRN (18:49)
[2018-08-21] MEDS: BETAPACE PO SCH (19:45)
[2018-08-21] MEDS ORDERED: BETAPACE PO SCH (21:00)
[2018-08-21] MEDS: ELIQUIS PO SCH (22:38)
--- NOTE | 2018-08-22 05:06 | HISTORY AND PHYSICAL ---
CHIEF COMPLAINT: Atrial fibrillation, shortness of breath. HISTORY OF PRESENT ILLNESS: This is a 63-year-old gentleman with a history of atrial fibrillation status post cardioversion in 2013 which was successful. The patient had no further dysrhythmia until recurrence in July of 2018. At this time, he underwent a AUGIE cardioversion which was successful. The patient was placed on sotalol and discharged home to follow up with Cardiology on a monitor. The patient states that over the last few days that he has had shortness of breath with activity. Sunday, his heart rate monitor said atrial fibrillation. He said he had palpitations. He could feel his heart rate was fast. This time, his blood pressure dropped and he did become dizzy. Since, he has had episodes of atrial fibrillation with palpitations and shortness of breath on exertion. Of note, patient is sitting in a chair noted to be in atrial fibrillation with heart rates ranging from 90 to 126. He denies any shortness of breath or any palpitations. He did stand and walk around the room during my interview and he was symptomatic having palpitations and shortness of breath. PAST MEDICAL HISTORY: 1. Atrial fibrillation, having DC cardioversion in August of 2013 with no recurrence until July 2018, undergoing a AUGIE at 08/01/2018 which was successful at that time. 2. Hypertension. 3. Anxiety. 4. Insomnia. PAST SURGICAL HISTORY: Ablation 2013 and July 2018, right foot surgery. SOCIAL HISTORY: He lives in [place]. He smokes about 2 packs of cigarettes a day. He drinks a few beers on Sunday and Sunday night. He denies any illicit drug use. ALLERGIES: No known drug allergies. HOME MEDICATIONS: Xanax 0.5 p.o. t.i.d., sotalol 80 mg p.o. b.i.d., Coreg b.i.d. REVIEW OF SYSTEMS: Discussed with patient with pertinent positives stated in the HPI. He denied any syncope or dizziness, any chest pain, cough, fever, chills, night sweats, recent weight loss or weight gain, PND, orthopnea, any nausea, vomiting, diarrhea, constipation, black or bloody vomitus or stools, any hematuria, dysuria, frequency, urgency. PHYSICAL EXAMINATION: GENERAL: This is a 63-year-old gentleman who is sitting up in the chair in no distress. VITAL SIGNS: Blood pressure is 101/62 with a heart rate ranging from 96 to 120, atrial fibrillation, respirations are 16, temperature is 97.8 degrees with O2 saturations being 97%-98% on room air. EYES: Pupils equal, round, react to light. EOMs are intact. Sclerae anicteric. HENT: Head is normocephalic, atraumatic. Mucous membranes are moist. NECK: Supple. Trachea midline. CARDIOVASCULAR: Irregularly, irregular rate and rhythm. S1 and S2 are appreciated. He has no lower extremity edema. Peripheral pulses are palpable x4 extremities. Calves are nontender bilateral. PULMONARY: Breath sounds are clear with no increased work of breathing noted. Chest rises and falls symmetric with respiration. Chest wall is nontender to palpation. GASTROINTESTINAL: Abdomen is soft, nontender, nondistended with bowel sounds in all 4 quadrants. GENITOURINARY: No CVA or suprapubic tenderness. NEUROLOGIC: He is alert and oriented x3. SKIN: Warm and dry. EKG: Reveals atrial fibrillation. ASSESSMENT AND PLAN: 1. Atrial fibrillation with rapid ventricular response. The patient will be admitted to the hospital, placed on telemetry. We will increase his sotalol to 120 mg p.o. b.i.d. tonight. We will identify his home medications and continue as appropriate. consult Cardiology 2. Chronic anticoagulation secondary to atrial fibrillation. We will continue Eliquis. 3. Hypertension. We will identify his home medications and trend vital signs and continue as appropriate. 4. Anxiety. We will continue Xanax 0.5 mg t.i.d. p.r.n. anxiety. 5. Tobacco use and abuse. We will give nicotine patch. 6. Further treatments pending hospital course discussed with Dr. Florez. Dictated by JOSE CRUZ Cobb for Aristeo Florez MD cc: JOSE CRUZ Cobb MD I agree with most components of history, physical, assessment and plan. A separate addendum has been dictated. A face to face encounter was performed in taking care of this patient. [facility]
--- NOTE | 2018-08-22 06:14 | HISTORY AND PHYSICAL ---
ADDENDUM: I agree with most components of history, physical, assessment, and plan. In brief, Mr. Dueñas is a 63-year-old, man with a past medical history of paroxysmal atrial fibrillation with rapid ventricular rate requiring cardioversion multiple times, essential hypertension, active tobacco abuse, who comes in with chief complaint of symptomatic atrial fibrillation. Apparently, he has a home ambulatory blood pressure monitor which detects abnormal rhythm as well. He has been having symptoms of exertional shortness of breath and occasional palpitations since last 1 week but it would get better at rest. Today, despite rest, it did not get better and he was feeling short of breath, and the monitor was detecting abnormal rhythm so he decided to come to the emergency room. He was found to be in atrial fibrillation in the emergency room. SUBJECTIVE: He is denying any chest pressure. Currently, he is denying any shortness of breath. VITAL SIGNS: Suggestive of temperature 98.2 degrees, pulse 85, respiratory rate 24, blood pressure 94/88. He does have irregular heart rhythm on the monitor. It looks like atrial fibrillation. PHYSICAL EXAMINATION: General: Does not appear in any acute distress. Oral cavity is moist. Lungs: Air entry bilaterally equal. No wheeze, rhonchi, or crackles. Cardiovascular: S1, S2 normal. Irregularly irregular. No murmur, rub, or gallop. Abdomen: Soft, nontender. Hepatojugular reflex is negative. He did not have lower extremity edema. He is alert and oriented x3. He is able to walk and talk without any difficulty. DIAGNOSTIC DATA: EKG is not available to me. However, on monitor, it looks atrial fibrillation. ASSESSMENT: 1. Recurrent atrial fibrillation. 2. History of essential hypertension and current episode of hypotension. Apparently, patient states that his blood pressure went down to 70/40 three days prior to presentation and he was feeling a little unusual. PLAN: I will start patient on sotalol and hold coreg. I will continue him on apixaban. I will, in fact, increase the dose of sotalol. I will consult cardiology tomorrow for long-term management. Plan of care discussed with him. All of his questions have been answered. cc: MD ANGELICA Flores
[2018-08-22] MEDS: ELIQUIS PO SCH ×3 (07:31→20:25)
[2018-08-22] MEDS: BETAPACE PO SCH ×2 (07:31→20:25)
[2018-08-22] MEDS: XANAX PO PRN ×2 (07:47→20:29)
--- NOTE | 2018-08-22 07:53 | EKG Report ---
Test Performed on : 08/21/2018 3:42:08 PM Test Reason : afib Blood Pressure : / mmHG Vent. Rate : 100 BPM Atrial Rate : 108 BPM P-R Int : 000 ms QRS Dur : 084 ms QT Int : 346 ms P-R-T Axes : 000 069 077 degrees QTc Int : 446 ms Atrial fibrillation. Cannot rule out Anteroseptal infarct , age undetermined Abnormal ECG When compared with ECG of 01-AUG-2018 14:45, Atrial fibrillation. has replaced Sinus rhythm. Minimal criteria for Anteroseptal infarct are now present Unconfirmed Result
--- NOTE | 2018-08-22 08:42 | EKG Report ---
Test Performed on : 08/22/2018 08:35:44 AM Test Reason : Follow up EKG for A FIb Blood Pressure : / mmHG Vent. Rate : 095 BPM Atrial Rate : 083 BPM P-R Int : 000 ms QRS Dur : 078 ms QT Int : 314 ms P-R-T Axes : 000 024 046 degrees QTc Int : 394 ms Atrial fibrillation. Abnormal ECG When compared with ECG of 21-AUG-2018 15:42, (Unconfirmed) Minimal criteria for Anteroseptal infarct are no longer present QT has shortened Confirmed by Froy Blank MD ([id number]) on 08/25/2018 11:33:58 AM
[2018-08-22] MEDS: LANOXIN IV SCH ×2 (11:03→12:41)
--- NOTE | 2018-08-22 12:54 | PROGRESS NOTE ---
DATE: 08/22/2018 INTERVAL HISTORY: He did not receive his nighttime sotalol. The patient tells me that he was hypotensive, and so the nurse did not give him his sotalol. His vital signs listed was 127/88 at about 6 p.m. I am unsure if the patient's physicians were notified if he was hypotensive and the reason why he was not given sotalol. In any case, in the morning time, he denies any chest pain or shortness of breath. He has not been out of bed yet. He has just received his morning sotalol. We discussed about other medication options, including amiodarone. His heart rate had increased to 150 in the morning time. OBJECTIVE: Vital Signs: Currently, temperature 98.2 degrees, pulse 113, respiratory rate 15, blood pressure 137/89, saturating 98% on room air. General: Does not appear in any acute distress. HEENT: Oral cavity is moist. Lungs: Air entry bilaterally equal. No wheeze, rhonchi, rales. Heart: S1, S2 normal. No murmur or gallop. His heart rhythm is irregularly irregular. Abdomen: Soft, nontender. Extremities: No lower extremity edema. Neurologic: He is alert and oriented x3. LABORATORY DATA: No CBC or BMP today. MICROBIOLOGY: No data. DIAGNOSTIC DATA: EKG suggests atrial fibrillation. ASSESSMENT AND PLAN: 1. Recurrent atrial fibrillation. Continue higher dose of sotalol and Eliquis. I will appreciate Cardiology recommendation about possibly trying other antiarrhythmic agent, such as amiodarone. He has had cardioversion last month, and ablation a few years ago. 2. History of essential hypertension. I am holding his Coreg, considering his blood pressure is in acceptable range, and he was hypotensive at home as per his report. 3. Tobacco abuse. He was counseled about not using tobacco again, and he is cutting down on that. 4. Others. Continue alprazolam for anxiety. 5. Disposition. Continue to monitor the patient in [facility]. Appreciate Cardiology recommendation. Plan of care discussed with him. All of his questions have been answered. cc: Aristeo Florez MD
--- NOTE | 2018-08-22 15:09 | CARDIOLOGY CONSULTATION ---
DATE: 08/22/2018 REASON: Palpitations/atrial fibrillation, and irregular heartbeat. HISTORY: Mr. Dueñas is a 63-year-old male that I saw recently in consultation on 07/30/2018. At this time, he presents back to the emergency room on 08/21 with recurrent palpitations and irregular pulse. The patient denied having any chest pain. He just felt a little dizzy. No shortness of breath and no syncope. PAST HISTORY: Positive for paroxysmal atrial fibrillation. He has had previous ablation of atrial fibrillation in [place] in 2013. The patient has history of hypertension. He has history of anxiety. SURGICAL HISTORY: He has had prior broken foot requiring surgery. He has had oral surgery. SOCIAL HISTORY: He is . 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 He is a tobacco user, 2 packs a day for 20 years, occasional alcohol. FAMILY HISTORY: Noncontributory. ALLERGIES: Negative. HOME MEDICATIONS: Apixaban 5 twice a day, sotalol 80 twice a day, trazodone 1 tablet at bedtime, alprazolam 1 tablet 3 times a day. REVIEW OF SYSTEMS: Other than palpitations, dizziness, noncontributory. PHYSICAL EXAMINATION: Vital signs: Blood pressure 108/85, temperature 97.8, pulse 88, respirations 19. General: Awake, alert, in no distress. HEENT: Unremarkable. Chest: Clear to auscultation and percussion. Heart: Sounds irregularly irregular. Abdomen: Nontender, soft. No masses or hepatomegaly. Extremities: Showed good pulses. No peripheral edema. Neurologic exam: Follows commands, moves all 4 extremities. BLOOD WORK: Sodium 137, potassium 4.8, BUN 24, creatinine 1.1, chloride 100, carbon dioxide 25. Hemoglobin 15.8, hematocrit 44.6. IMPRESSION: 1. Patient presenting with recurrent paroxysmal atrial fibrillation. 2. History of previous ablation for atrial fibrillation. 3. History of hypertension. 4. History of tobacco use. RECOMMENDATIONS: At this time, we will increase his sotalol to 120 twice a day. We will give him a few doses of digoxin to control heart rate. Because he has been already taking apixaban for several weeks and his AUGIE was negative for clot, we will just go ahead and set him up for a followup cardioversion tomorrow morning. Hopefully, that will help to keep him in sinus rhythm. If he fails, we may have to refer him back for a repeat ablation. cc: Everton Calabrese MD
[2018-08-22] MEDS ORDERED: LANOXIN IV ONE (18:00)
[2018-08-23 06:06] LABS: BASO# 0.02 X1000 (0.0-0.2); BASO% 0.3 % (0.0-0.8); EOS# 0.12 X1000 (0.0-0.7); EOS% 1.7 % (0.0-10.0); LYMPH# 3.58 X1000 (1.2-3.4); MCH 33.9 PG (27-31); MCHC 34.7 g/dL (33-37); MCV 97.8 FL (81-99); MONO# 0.57 X1000 (0.11-0.59); MONO% 8.3 % (1.7-9.3); MPV 10.3 FL (7.4-10.4); NEUT% 37.7 % (42.2-75.2); PLT 163 X1000 (130-400); RBC 5.01 XMIL (4.7-6.1); WBC 6.89 X1000 (4.8-10.8)
[2018-08-23 06:34] LABS: AGAP 12; BUN 17 mg/dL (8-22); CHLORIDE 101 mmol/L (98-107); COSMO 278; ESTIMATED GFR > 60; GLUCOSE 85 mg/dL (70-104); POTASSIUM 5.2 mmol/L (3.5-5.1); SODIUM 139 mmol/L (136-145); TCO2 26 mmol/L (25-35)
[2018-08-23 06:35] LABS: CALCIUM 9.3 mg/dL (8.8-10.2)
--- NOTE | 2018-08-23 07:49 | EKG Report ---
Test Performed on : 08/23/2018 06:31:51 AM Test Reason : afib Blood Pressure : / mmHG Vent. Rate : 079 BPM Atrial Rate : 080 BPM P-R Int : 000 ms QRS Dur : 086 ms QT Int : 360 ms P-R-T Axes : 000 083 080 degrees QTc Int : 412 ms Atrial fibrillation. Abnormal ECG When compared with ECG of 22-AUG-2018 08:35, (Unconfirmed) Questionable change in QRS axis Confirmed by Froy Blank MD ([id number]) on 08/25/2018 12:04:54 PM
[2018-08-23] MEDS: BETAPACE PO SCH (08:34)
[2018-08-23] MEDS: XANAX PO PRN (08:34)
[2018-08-23] MEDS: ELIQUIS PO SCH (08:34)
[2018-08-23] MEDS ORDERED: ANESTHESIA PB SET 88 IN 5742 ONE (09:39)
[2018-08-23] MEDS ORDERED: NS 1,000 ML ONE (09:39)
[2018-08-23] MEDS ORDERED: DIPRIVAN 1% ONE (09:41)
--- NOTE | 2018-08-23 10:03 | OPERATIVE NOTE ---
PROCEDURE DATE: PROCEDURE PERFORMED: Cardioversion. OPERATION: Was brought to the cardiac catheterization laboratory for cardioversion. The patient is in atrial fibrillation. Was loaded with sotalol. He has also been anticoagulated. Anesthesia was present. Propofol was given intravenously. Please see detailed anesthesia records. 120 mg of joules synchronized cardioverted the patient with a single shock to sinus rhythm. His vital signs were stable. There were no complications. cc: Twin Vasquez MD
--- NOTE | 2018-08-23 11:05 | EKG Report ---
Test Performed on : 08/23/2018 10:36:22 AM Test Reason : s/p cardioversion Blood Pressure : / mmHG Vent. Rate : 065 BPM Atrial Rate : 065 BPM P-R Int : 146 ms QRS Dur : 082 ms QT Int : 422 ms P-R-T Axes : 084 043 051 degrees QTc Int : 438 ms Normal sinus rhythm. Right atrial enlargement Borderline ECG When compared with ECG of 23-AUG-2018 06:31, (Unconfirmed) Sinus rhythm. has replaced Atrial fibrillation. T wave amplitude has decreased in Inferior leads Confirmed by Froy Blank MD ([id number]) on 08/25/2018 12:15:11 PM
[2018-08-23 12:09] VITALS: BP 126/89
[2018-08-23] MEDS ORDERED: PNEUMOVAX 23 IM ONE (12:37)
--- NOTE | 2018-08-23 15:34 | PROGRESS NOTE ---
DATE: 08/23/2018 INTERVAL HISTORY: He continues to have atrial fibrillation with controlled ventricular response and is about to go for cardioversion. SUBJECTIVE: Denies any chest pain, shortness of breath or palpitation. VITALS: Temperature 97.8 degrees, pulse 82, respiratory rate 16, blood pressure 120/92, saturating 96% on room air. PHYSICAL EXAMINATION: General: He does not appear in acute distress. HEENT: Oral cavity is moist. Lungs: Air entry bilaterally equal, no wheeze, rhonchi, crackles. Cardiovascular: S1, S2 normal. No murmur or gallop. Abdomen: Soft, nontender. He does have significant protein energy malnutrition and I have advised him to follow up with the Gastroenterology about age- appropriate cancer screening. LABORATORY DATA: Potassium of 5.2. ASSESSMENT AND PLAN: 1. Recurrent atrial fibrillation. Continue sotalol and Eliquis. Follow up post cardioversion recommendations. 2. Essential hypertension. Continue to hold Coreg. 3. Tobacco abuse. He was counseled about not stopping smoking. 4. Continue alprazolam for anxiety. DISPOSITION: Pending Cardiology recommendation post cardioversion. cc: Aristeo Florez MD
--- NOTE | 2018-08-24 13:41 | DISCHARGE SUMMARY ---
ADMISSION DATE: 08/21/2018 DISCHARGE DATE: 08/23/2018 DISCHARGE DISPOSITION: Home. DISCHARGE CONDITION: Hemodynamically stable. He is in sinus rhythm. PROCEDURES DURING CURRENT HOSPITALIZATION: Cardioversion 120 joules with a single shock which converted his rhythm from atrial fibrillation to sinus. DISCHARGE DIAGNOSES: 1. Recurrent paroxysmal atrial fibrillation. 2. History of essential hypertension, but hypotension on presentation. 3. Active tobacco abuse. 4. Protein energy malnutrition. 5. Anxiety. 6. Insomnia. CONSULTATIONS DURING HOSPITALIZATION: [employer] Salesperson, Dr. Vasquez. VITAL SIGNS: During hospital discharge temperature 97.8 degrees, pulse 82, respiratory rate 16, blood pressure 120/90, saturating 96% on room air. Normal sinus rhythm. DISCHARGE PHYSICAL EXAMINATION: General: At the time of discharge, he is alert and oriented x3. My examination was before cardioversion procedure. HEENT: Oral cavity is moist. Lungs: Air entry bilaterally equal. No wheeze, rhonchi. Cardiovascular: S1, S2 normal. No murmur, rub, or gallop. Abdomen: Soft, nontender. No lower extremity edema. He is currently in atrial fibrillation however he is about to go for cardioversion. SIGNIFICANT LABS: At the time of discharge, WBC 6.8, hemoglobin 17, platelet 163,000. Sodium 139, potassium 5, BUN 17, creatinine 1. On telemetry monitoring currently at the time of dictation he is in sinus rhythm. DISCHARGE MEDICATIONS: 1. Trazodone 50 mg at nighttime. 2. Alprazolam 0.2 0.5 mg t.i.d. 3. Apixaban 5 mg b.i.d. 4. Sotalol 120 mg b.i.d. 90 tablets have been prescribed with 1 refill. HOSPITAL COURSE SUMMARY: Mr. Dueñas is a 63-year-old man with a past medical history of recurrent paroxysmal atrial fibrillation requiring ablation in 2014 who has had 2 prior admissions for atrial fibrillation requiring cardioversion, came in with chief complaints of exertional palpitation or shortness of breath. Apparently at home, he has an ambulatory blood pressure monitor which detects abnormal rhythm and it was detecting abnormal rhythm a week prior to presentation. However, his symptoms were not significant, so he did not see a physician. However on the day of presentation, on physical exertion and even at rest, he was feeling slightly short of breath and was having palpitations, so he came to the emergency room. He was found to have atrial fibrillation with rapid ventricular rate as high as 140s, so hospitalist team was consulted for further management. His sotalol dose was increased from 80 mg to 120 mg. However, despite that, his heart rhythm remained in atrial fibrillation though his rate was already controlled. Considering his persistent atrial fibrillation, on August 23, he underwent cardioversion which converted him to normal sinus rhythm. DISCHARGE INSTRUCTIONS: At the time of discharge he is being discharged on higher dose of sotalol at 120 mg b.i.d., continued on Eliquis. He was advised to follow up with his process coordinator after discharge. More than 30 minutes spent in discharging this patient. cc: Aristeo Florez MD
== END 2018-08-23 14:00 | disposition home or self-care (01) | DRG 309 ==
LOC: ED 15:05 → EDIPHOLD 15:06 → SUATTDRO 15:06 → 3S 08-22 05:36
PROVIDERS: ATTEND Internal Medicine
CPT/HCPCS: 71020; 71046; 80048; 80053; 82948; 83735; 84484; 85025; 85610; 85730; 90732; 92960; 93005; 93010; A9270; J1160; J7030; XXXXX